=== PATIENT | male | born 1985 | race Caucasian/White ===

== ENCOUNTER 2022-11-19 07:31 | Emergency (ER) | payer OTHER ==
[2022-11-19 07:46] VITALS: BP 158/79; PULSE 95; RESP 16; TEMP 98.4
== END 2022-11-19 09:15 | disposition home or self-care (01) ==
LOC: JER 07:31
DX: R09.81 Nasal congestion (principal); J02.9 Acute pharyngitis, unspecified
CPT/HCPCS: 0241U-QW; 99283-25